=== PATIENT | female | born 1975 | race Caucasian/White ===

== ENCOUNTER 2025-04-18 10:07 | Outpatient (REF) | payer OTHER, SELFPAY ==
--- NOTE | ~2025-04-18 | MR_ITS ---
CLINICAL HISTORY: PELVIC PERINEAL PAIN R O UTERINE FIBROID MR female pelvis with and without contrast Comparison: None Findings: The uterus is anteverted and enlarged, measuring 11.8 x 0.9 x 11.2 cm. There are multiple fibroids. The largest fibroid is at the fundus and is submucosal measuring 7.9 x 6.5 x 9.3 cm. It is heterogeneously hyperintense on T2 weighted images with heterogeneous enhancement. There is also a fibroid at the fundus of the right aspect and is intramural measuring 2.4 x 3.2 x 3.0 cm. It is hypointense on the T2 weighted images and hypoenhancing relative to myometrium and larger fibroid. Fluid signal lesion in the cervix in the endocervical canal with internal septations without definitive enhancement measuring 1.7 x 1.8 x 1.5 cm ( series 3, image 17). The endometrium is normal in thickness, measuring 0.5cm. The junctional zone is not thickened. The ovaries are normal in size without lesions. There is a dominant follicle in the left ovary measuring 1.8 cm Unremarkable bladder. The pelvic veins are mildly dilated, measuring up to 1.2 cm. Subcentimeter fluid signal lesions in the liver measuring up to 7 mm; cysts versus biliary hamartomas. Impression: Fibroid uterus. Complex cystic lesion in the cervix could be a nabothian cyst. Correlate with recent pap smear results to exclude a lesion in the endocervical canal. Dilated pelvic veins can be seen in the setting of pelvic congestion syndrome. This document has been electronically signed by: Gabby Beard MD on 04/19/2025 15:21:43
--- OUTSIDE RECORDS SUMMARY | 2025-04-18 12:12 | XMS_ITS | Clinical Summary ---
Author Organization [facility] Address [address] [place] [phone] Phone Care Team Providers Care Mobile Security Specialist Name Role Phone Unknown, Unknown Primary Care Provider Sheila muniz Allergies No known active allergies Medications spironolactone (ALDACTONE) 100 MG tablet Take 1 tablet by mouth daily. Active EPINEPHrine 0.3 mg/0.3 mL auto-injector Inject 0.3 mg into the muscle as needed for anaphylaxis. Active triamcinolone acetonide 0.025 % cream Apply 1 application topically 2 (two) times a day. Rash around eyes Active cholecalciferol, vitamin D3, (VITAMIN D3 ORAL) Take 1,000 mg by mouth daily. Active Lactobacillus acidophilus (PROBIOTIC ORAL) Take 1 capsule by mouth 2 (two) times a day. Active Active Problems Problem Noted Date Diagnosed Date Angio-edema 06/20/2022 Assessment & Plan (06/20/2022 6:39 PM EST): See below Routine general medical exam ination at a health care facility 05/10/2022 Assessment & Plan (06/20/2022 6:39 PM EST): As discussed, Regarding JUST the swollen eyelids When and if it occurs, try taking Zyrtec 10mg or Benadryl 25mg, watch for drowsiness If rash present on the eyelid, then use miniscule amount of the triamcinolone cream for 2-4 days every 2-3 months Also, Use oil based makeup remover for the eyes Cologuard due 2024 Remember Self Breast Exam every 2-3 months 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 Not on rc e 10/29/2022 Are you concerned about learning? Not on file 10/29/2022 No 10/29/2022 No 10/29/2022 Digital Access Answer Date Recorded No 11/29/2022 No 11/29/2022 No 11/29/2022 Reliable internet access at home? Not on file 11/29/2022 Device with a working camera? Not on file Comments Unknown Sex and Gender Information Value Date Recorded Sex Assigned at Not on file Legal Sex Female 10:30 PM EDT Gender Identity Not on file Sexual Orientation Not on file Last Filed Vital Signs Vital Sign Reading Time Taken Comments Blood Pressure 108/62 05/10/2022 2:01 PM EST Pulse 84 05/10/2022 2:01 PM EST Temperature - - Respiratory Rate 16 05/10/2022 2:01 PM EST Oxygen Saturation 97% 05/10/2022 2:01 PM EST Inhaled Oxygen Concentration - - Weight 65.5 kg (144 lb 6.4 oz) 05/10/2022 2:01 P M EST Height 163.2 cm (5' 4.25 ) 05/10/2022 2:01 PM ES T Body Mass Index 24.59 05/10/2022 2:01 PM EST Plan of Treatment Health Maintenance Due Date Last Done Comments Adult Td,Tdap Booster 1975 HEPATITIS C SCREENING 1993 HIV ONE-TIME SCREENING (18-6 5 YEARS) 1993 COLONOSCOPY 2020 FIT TEST 2020 FOBT 2020 SIGMOIDOSCOPY 2020 VIRTUAL COLONOSCOPY 2020 POTASSIUM LEVEL 05/23/2021 05/23/2020 PAP SMEAR 09/20/2021 09/20/2018 DEPRESSION SCREENING 05/09/2023 05/09/2022 MAMMOGRAM 03/18/2024 03/18/2022, 01/13/2021 COLOGUARD 06/03/2024 06/03/2021 COLORECTAL CANCER SCREENING 06/03/2024 INFLUENZA VACCINE (#1) 2025 COVID-19 VACCINE (2024-2 6 season) 2025 06/22/2021, 09/08/2020, 08/18/2020 LIPID PANEL 05/23/2025 05/23/2020, 05/23/2020, 05/23/2020 SMOKING STATUS SCREENING (On ce After 26 Yrs) Completed 05/10/2022 HEPATITIS A VACCINES Aged Out No long er eligible based on patient's age to complete this topic HIB VACCINES Aged Out No longer eligi ble based on patient's age to complete this topic MENINGOCOCCAL VACCINES (ACWY) Aged Out No longer eligible based on patient's age to complete this topic MENINGOCOCCAL VACCINES (B) Aged Out N o longer eligible based on patient's age to complete this topic PNEUMOCOCCAL VACCINES (0-49 years) Aged Out No longer eligible b ased on patient's age to complete this topic Medical Devices Not on file Procedures Procedure Name Priority Date/Time Associated Diagnosis Comments MAMMOGRAPHY Routine 03/18/2022 OUTSIDE HDL Routine 05/23/2020 OUTSIDE POTASSIUM LEVEL Routine 05/23/2020 PAP TEST Routine 09/20/2018 from Last 3 Months or Most Recently Relevant to Health Maintenance Results * MAMMOGRAPHY FOR RESULT ENTRY ONLY (03/18/2022) HM Mammogram BIRADS 2 Historical Provider MD HEALTH MAINTENANCE Final Result * Outside Potassium Level (05/23/2020) Potassium level - External 4.3 3.4 - 5.0 mmol/L Historical Provider LAB BLOOD ORDERABLES Tatiana l Result * Outside HDL (05/23/2020) HDL - External 49 40 - 80 mg/dL [facility] Provider LAB BLOOD ORDERABLES Tatiana l Result * Pap Smear (09/20/2018) Historical Provider CYTOLOGY ORDERABLES Final Result from Last 3 Months or Most Recently Relevant to Health Maintenance Insurance [address] [place], [place] [id number] POS [facility] POS CIG[employer] HMO POS CIGNA HMO POS CIGNA HMO POS CIGNA HMO POS CIGNA HMO POS CIGNA HMO POS CIGNA HMO POS Care Teams Mobile Security Specialist Relationship Specialty Start Date End Date Unknown, Unknown, PCP - General 09/12/17 Additional Source Comments The information contained in this document represents components of the legal health record. It is not the complete legal health record.[facility]
--- OUTSIDE RECORDS SUMMARY | 2025-04-18 12:12 | XMS_ITS | Clinical Summary ---
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 Name Role Phone Unavailable Primary Care Provider Unavailabl e Social History Tobacco Use Types Packs/Day Years Used Date Smoking Tobacco: Never Assessed Sex and Gender Information Value Date Recorded Sex Assigned at Not on file Gender Identity Not on file Sexual Orientation Not on file Plan of Treatment Health Maintenance Due Date Last Done Comments Hepatitis B Vaccines (1 of 3 - 3-dose series) 1975 Hepatitis C Screening 1975 COVID-19 Vaccine (#1) 1975 Depression Screening 1987 Preventative Health Evaluation 1993 DTap / Tdap / Td (1 - Tdap) 1994 Cervical Cancer Screening (P ap Smear) 1996 Colon Cancer Screening (Colonoscopy) 2020 Influenza Vaccine (#1) 2025 Pneumococcal Vaccine Aged Out No long er eligible based on patient's age to complete this topic RSV Ped < 20 months Aged Out No longe r eligible based on patient's age to complete this topic Advance Directives For more information, please contact: [phone] Documents on File Type Date Recorded 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
== END 2025-04-18 10:08 | disposition home or self-care (01) ==
LOC: HO.MRI 10:07
PROVIDERS: PCP Nurse Practitioner Family; Visit Provider Radiology Vascular & Interventional Radiology
DX: R10.20 Pelvic and perineal pain unspecified side (principal)
CPT/HCPCS: 72197; A9585

== ENCOUNTER → 2025-04-18 10:36 | Outpatient (BNV) | payer OTHER, SELFPAY | PROVIDERS: PCP Nurse Practitioner Family; Visit Provider Radiology Diagnostic Radiology | DX: N88.8 Other specified noninflammatory disorders of cervix uteri (principal); D25.9 Leiomyoma of uterus, unspecified; I86.2 Pelvic varices | CPT/HCPCS: 72197 ==

== ENCOUNTER 2025-04-18 11:21 | Outpatient (REF) | payer OTHER, SELFPAY | END 2025-04-18 11:22 | disposition home or self-care (01) | LOC: HO.MRI 11:21 | PROVIDERS: PCP Nurse Practitioner Family; Visit Provider Radiology Vascular & Interventional Radiology | DX: Z13.89 Encounter for screening for other disorder (principal) ==